=== PATIENT | male | born 1940 | race Caucasian/White ===

== ENCOUNTER 2017-04-15 14:04 | Emergency (ER) | payer MEDICARE ==
[~2017-04-15] VITALS: Ht 175.3 cm; Wt 93.0 kg
--- NOTE | ~2017-04-15 | CR252 ---
[facility] A Service of [facility] & [facility] RADIOLOGY TEXT RESULTS PATIENT: ORLNADO BERNAL LOCATION: [facility] : 44 UNIT #: [id number] AGE: [address]: Ivania Stark SEX: M ORDER DR: [id number] [facility] [address] [place], [place] [address] [id number] MR#: [id number] Acc #: [id number] NAME: ORLANDO BERNAL. : 1940 SEX: M STUDY DATE/TIME: 04/15/2017 15:28 UNIT: [facility] ROOM: STUDY DESCRIPTION: CR Tibia and Fibula 2 Views Lt Attending Physician: Ivania Stark P.A.-C. Ordering Physician: Ivania Stark P.A.-C. Primary Care Physician: Leandra Arnold M.D. MEDICAL IMAGING REPORT This report is preliminary unless electronic signature is present EXAM Left tibia and fibula. HISTORY Redness and pain for 2 weeks. FINDINGS AP and lateral views of the lower leg were obtained. The patient has undergone a below-knee amputation. The remaining tibia and fibula appear normal. There is no plain film evidence of osteomyelitis. IMPRESSION 1. Prior below-knee amputation. 2. No plain film evidence of osteomyelitis. No foreign bodies are visible. Dictated by... Shailesh Rehman M.D. THIS IS AN ELECTRONICALLY VERIFIED REPORT Shailesh Rehman M.D. at 04/16/2017 7:32 AM CHAD/mariaelena TD: 04/15/2017 17:12 JOB #: [id number] MEDICAL IMAGING REPORT Page 1 of 1 COPY
[~2017-04-15 14:04] MED LIST: ANTIVERT PO; ASPIRIN81 M1 PO; FLEXERIL10 M1 PO; GLUCOPHAGE500 MG PO; HCTZ PO; LOPRESSOR100 MG PO; LYRICA50 MG PO; MEDROL4 MG/DOSE- PO; NIASPAN PO; PRINIVIL20 M1 PO; SIMVASTATIN40 MG PO; SKELAXIN PO; TUSSIONEX PENN473 ML PO; ULTRAM PO; VIBRAMYCIN100 M1 PO; ZYLOPRIM100 MG PO
== END 2017-04-15 16:15 | disposition home or self-care (01) ==
LOC: CED 14:04 → CFTX 14:04
DX: L03.116 Cellulitis of left lower limb (principal); E11.9 Type 2 diabetes mellitus without complications; I10 Essential (primary) hypertension; Z88.0 Allergy status to penicillin; Z88.5 Allergy status to narcotic agent
CPT/HCPCS: 73590; 82947; 96372; 99283; J0696